=== PATIENT | male | born 1995 | race Caucasian/White ===

== ENCOUNTER 2016-08-26 14:17 | Inpatient (IN) | payer BC, OTHER ==
[~2016-08-26] VITALS: Ht 170.2 cm; Wt 73.9 kg
[2016-08-26] MEDS ORDERED: ONDANSETRON 4 MG/2 ML VIAL IM PRN (21:45)
[2016-08-26] MEDS ORDERED: MIRALAX 17 GM POWD.PACK PO PRN (21:45)
[2016-08-26] MEDS ORDERED: HYDROXYZINE PAMOATE 25 MG CAPSULE PO PRN (21:45)
[2016-08-26] MEDS ORDERED: MAGNESIUM HYDROXIDE 30 ML LIQUID UDC PO PRN (21:45)
[2016-08-26] MEDS ORDERED: diphenhydrAMINE 50 MG CAPSULE PO PRN (21:45)
[2016-08-26] MEDS ORDERED: BUPRENORPHINE HCL 2 MG TAB.SUBL SL PRN (21:45)
[2016-08-26] MEDS ORDERED: LOPERAMIDE HCL 2 MG CAPSULE PO PRN ×2 (21:45)
[2016-08-26] MEDS ORDERED: MAG HYDROX/AL HYDROX/SIMETH 30 ML LIQUID UDC PO PRN (21:45)
[2016-08-26] MEDS ORDERED: ACETAMINOPHEN 325 MG TABLET PO PRN (21:45)
[2016-08-26] MEDS ORDERED: ONDANSETRON ODT 4 MG TAB.RAPDIS SL PRN (21:45)
--- NOTE | 2016-08-26 22:00 | NUR ---
Intake Assessment Assessment done at intake office. Patient is alert & oriented x4. Pt is ambulatory with a steady gait. Speech is clear and audible. Pt appears slightly anxious and is cooperative during interviews. Vitals noted B/P 124/76, PA 87, RR 18, Temp 97.9, O2Sat 96%. Pt is here for Opiate. Pt has Hepatitis C. No seizure history noted. Pt denies any food and drug allergies. Pt did not bring any home medications. Explained to pt unit protocols. Pt verbalized understanding.
[2016-08-26 22:15] VITALS: BP 124/76
--- NOTE | 2016-08-26 22:15 | NUR ---
ADMISSION NOTE: Patient is a 21 y.o male admitted at [facility] at approximately 2215pm of 07/27/16 for medically supervised withdrawal from Opiate. Body search done and skin check performed in Room 327, no contraband found. Track miranda noted on both upper extremities. Pt is 57" tall and weighs 163 lbs in a standing scale. Pt is cooperative during assessment. Patient is oriented to floor unit and room. Patient follows a regular diet at home with no known food and drug allergies. Pt wishes to be full Code. Patient is alert & oriented x4, ambulatory with a steady gait. Speech is clear and audible. Patient is cooperative during interview. No shortness of breath noted. Respiration even & unlabored. Abdomen soft & non-distended. Bowel sounds active in all four quadrants. No nausea/vomiting noted. Patient complains of 7/10 body aches, hot and cold sweats, chills & runny nose. Slight bilateral hand tremors noted. CIWA 7 noted. Vitals upon admission: B/P 124/76, SD 87, Temp 97.9, RR 16, O2Sat 96%. Patient has Hepatitis C. No seizure history noted. Pt denies suicide in the past. No suicide attempts. Pt currently denies SI/HI. Pt was able to provide urine sample for drug screen upon admission and is voiding clear yellow urine with no problems. Substance use: 1. Heroin- Pt has been using heroin since he was 15 years old. Pt currently uses 1-2 grams of heroin daily since he relapsed 6 months ago. Last use was 1 gram of heroin on the day of admission 08/26/16. Treatment History: [facility] and Body in [facility] for 5 days ( March 2016) Patient denies being hospitalized in the last 30 days. Patient reports his longest period of sobriety was for 1 month 6 months ago Patient reports symptoms when he does not use as cold & hot sweats, chills, body aches, headache, nausea, skin crawling, shaking, restless, anxious & irritability. Patient smokes 20 cigarettes daily. Patient refused pneumonia vaccines, educated patient risk & benefits but still refused. Patient denies having a PCP. Urine drug screen came back positive for Opiates & Barbiturates. Fall precautions are in place. All needs attended & met. Safety precautions are in place. Bed locked in lowest position. Both side rails padded & up. Call light within pt's reach. notified of pts admission. Awaiting for admission order. Will continue to monitor patient.
[2016-08-26] MEDS: METHOCARBAMOL 750 MG TABLET PO PRN (23:12)
[2016-08-26] MEDS: CLONIDINE HCL 0.1 MG TABLET PO PRN (23:12)
--- NOTE | 2016-08-26 23:12 | NUR ---
PRN Administration Patient complains of hot and cold sweats, chills & 7/10 generalized body aches. PRN Clonidine & Robaxin administered as ordered. Will reassess in 1 hour for effectiveness of medication.
[2016-08-26 23:13] LABS: *AMPHETAMINE, URINE NEGATIVE (NEGATIVE); *BARBITURATE, URINE POSITIVE (NEGATIVE); *CANNABINOID, URINE NEGATIVE (NEGATIVE); *COCCAINE, URINE NEGATIVE (NEGATIVE); *OPIATE, URINE POSITIVE (NEGATIVE); *PHENCYCLIDINE SCREEN,URINE NEGATIVE (NEGATIVE)
[2016-08-26] MEDS ORDERED: METHOCARBAMOL 750 MG TABLET ONE (23:20)
[2016-08-26] MEDS ORDERED: ONDANSETRON ODT 4 MG TAB.RAPDIS ONE (23:20)
[2016-08-26] MEDS ORDERED: CLONIDINE HCL 0.1 MG TABLET ONE (23:20)
--- NOTE | 2016-08-27 00:12 | NUR ---
PRN Reassessment Pt verbalized relief from sweats and chills and discomfort. 3/10 generalized body aches noted at this time. Will continue to monitor patient.
[2016-08-27 04:00] VITALS: BP 107/64
--- NOTE | 2016-08-27 07:01 | NUR ---
End of Shift Note: Pt is a 21 y/o male admitted last night for Opiate dependence. Pt reported using Heroin IV 1-2 grams daily for 6 months. Patient has hepatitis C. No seizure history noted. Patient is on a regular diet with no known food and drug allergies. Full Code status. Patient with noted skin tracks on both upper extremities. Patient has no taper yet. Initial COWS is 7. Pt remained stable and vitals remains WNL. Pt was given PRN Robaxin & Clonidine last night and were effective. Pt slept for a total of 7 hours. Pt consumed 828ml of fluids. Voided 1x with no bowel movement. All needs attended & met. Safety precautions are in place. Bed locked in lowest position. Both side rails up. Call light within pts reach. Will endorse pt to day shift nurse.
--- NOTE | 2016-08-27 07:02 | NUR ---
Start of Shift Notes: Received patient in his room. Alert and oriented x 4. Verbally responsive. Able to make needs known. Respirations even and unlabored. No SOB noted. Skin warm and dry to touch. Abdomen soft and non-distended. Bowel sounds present in all 4 quadrants. No complains N/V/D or abdominal pain noted. No complains of diarrhea or constipation. Voids independently. Ambulatory ad samuel with steady gait. Voids independently No complains of dysuria. Patient is a 21 year old male admitted for opiate dependence who was placed on PRNs only at this time. Has past medical hx of Hep C. FULL CODE. Regular diet. NKA. Educated patient on his current plan of care and his medication regimen. Patient verbalized good understanding. Encouraged oral fluid intake and encouraged group participation to learn new skills to prevent relapse. Will continue to monitor closely.
[2016-08-27 08:00] VITALS: BP 114/67
[2016-08-27] MEDS: MULTIVITAMINS,THERAPEUTIC TABLET PO SCH (09:00)
[2016-08-27] MEDS ORDERED: TUBERCULIN,PURIF.PROT.DERIV. 5 TU/0.1 ML TEST ID ONE ×2 (09:00→13:00)
--- NOTE | 2016-08-27 09:49 | NUR ---
MVI and TB test not administered: Patient refused MVI and TB test at this time. Patient states "I just want to sleep, leave me alone." Patient education was provided on the risk and benefits patient still refused. Patient's COWS 7 but refused any meds at this time. Dr. Yao in the unit and made aware.
--- NOTE | 2016-08-27 10:00 | NUR ---
UDS result: UDS result shows (+) for barbiturates. Per patient, he does not recall using any barbiturates and denies using barbiturates.
[2016-08-27 11:23] LABS: BASOPHILS % (AUTO) 0.4 % (0.0-2.0); EOSINOPHILS # (AUTO) 0.1 K/uL (0.0-0.7); EOSINOPHILS % (AUTO) 1.9 % (0.0-7.0); HEMATOCRIT 43.8 % (40-50); HEMOGLOBIN 14.8 G/DL (14.0-18.0); LYMPHOCYTES # (AUTO) 1.3 K/UL (0.8-4.8); LYMPHOCYTES % (AUTO) 19.8 % (20.5-51.5); MEAN CORPUSCULAR HEMOGLOBIN 28.3 UUG (27.0-31.0); MEAN CORPUSCULAR HGB CONC 34 g/dL (32.0-37.0); MEAN CORPUSCULAR VOLUME 83.8 FL (82.0-92.0); MONOCYTES # (AUTO) 0.4 K/UL (0.1-1.30); MONOCYTES % (AUTO) 5.9 % (0.0-11.0); NEUTROPHILS # (AUTO) 4.7 K/UL (1.8-8.9); PLATELET COUNT (AUTO) 330 K/UL (150-450); RED BLOOD CELL COUNT(AUTO) 5.23 MIL/UL (4.7-6.1); RED CELL DISTRIBUTION WIDTH 13.1 % (11.5-14.5); WHITE BLOOD COUNT (AUTO) 6.5 K/UL (4.0-11.2)
[2016-08-27 11:28] LABS: ETHANOL < 3 MG/DL (0-0)
[2016-08-27 11:29] LABS: ALANINE AMINOTRANSFERASE 62 U/L (16-63); ALBUMIN 3.3 g/dL (3.4-5.0); ALKALINE PHOSPHATASE 50 U/L (50-136); ASPARTATE AMINOTRANSFERASE 47 U/L (15-37); BILIRUBIN,TOTAL 0.5 mg/dL (0.2-1.0); CARBON DIOXIDE 30 mmol/L (21-32); CHLORIDE 101 mmol/L (98-107); CREATININE 0.9 mg/dL (0.6-1.3); GFR 105 mL/min (>60); GLUCOSE 125 mg/dL (74-106); POTASSIUM 4.1 mmol/L (3.5-5.1); SODIUM SERUM 132 mmol/L (136-145); TOTAL PROTEIN, SERUM 7.4 g/dL (6.4-8.2); UREA NITROGEN, BLOOD 10 mg/dL (7-18)
[2016-08-27 11:38] LABS: THYROID STIMULATING HORMONE 0.268 mIU/mL (0.358-3.740)
[2016-08-27 12:00] VITALS: BP 117/71
[2016-08-27] MEDS: DICYCLOMINE HCL 20 MG TABLET PO PRN (12:20)
[2016-08-27] MEDS: CLONIDINE HCL 0.1 MG TABLET PO PRN (12:20)
[2016-08-27] MEDS: METHOCARBAMOL 750 MG TABLET PO PRN (12:20)
--- NOTE | 2016-08-27 12:21 | NUR ---
Clonidine 0.1mg/Robaxin 750mg/Bentyl 20 mg PO given: Patient noted with COWS 14, presented with chills, hot flashes, anxiety, pupil dilation, muscle aches and pains 6/10, and stomach cramps. Medicated patient with Clonidine 0.1mg PO, Robaxin 750 mg PO and Bentyl 20 mg PO as ordered. Will monitor for effectiveness.
[2016-08-27 12:25] LABS: HIV-1 p24 ANTIGEN NON REACTIVE (NONREACTIVE); HIV-1/2 ANTIBODY NON REACTIVE (NONREACTIVE)
--- NOTE | 2016-08-27 12:51 | NUR ---
Re-assessment: Per patient, Subutex 4 mg SL has been effective in reducing withdrawal symptoms. COWS 8
--- NOTE | 2016-08-27 13:21 | NUR ---
Re-assessment: Robaxin, Clonidine and Bentyl: Per patient, PRN Robaxin, Clonidine and Bentyl has been effective in reducing patient's muscle aches and pains, PL 3/10. Less anxiety, chills and hot flashes subsided and denies abdominal discomfort at this time.
[2016-08-27] MEDS ORDERED: BUPRENORPHINE HCL 2 MG TAB.SUBL SL SCH (15:00)
--- NOTE | 2016-08-27 15:51 | NUR ---
MD Communication: Patient appeared to put Subutex under his tongue, but turned his back against the nurse. Patient's left hand was seen with 2 white circular tablets in his possession. Nurse immediately intervened and notified patient that he needs to put the Subutex under his tongue to prevent complications. Patient denied having Subutex on his left hand but also refused to open his mouth for the nurse to check on the Subutex. Reinforcement was provided on the consequences involved. Patient eventually placed the Subutex under his tongue. Oral checked was done. No residue from Subutex was seen. Notified Dr. Yao and discontinued patient's taper. Will continue to monitor. Administration notified. VS checked BP 110/61, Pulse 90.
[2016-08-27 16:00] VITALS: BP 113/53
--- NOTE | 2016-08-27 16:25 | NUR ---
New Orders: Patient was placed on 1:[address] Yao for safety.
--- NOTE | 2016-08-27 19:00 | NUR ---
End of Shift Notes: Patient is a 21 year old male admitted for opiate dependence that was placed on 3-day Subutex taper but was discontinued per MD Yao. Prior to admission, patient was using 1-2 grams of heroin IV daily x 6 months. VS monitored closely q 4 hours. No significant abnormalities noted. Withdrawal symptoms were closely monitored. Initial COWS 14. Presented with abdominal spasms, chills, hot flashes, sweating, and muscle aches and pains. Refused 0900 meds but eventually agreed. PRN Robaxin 750mg, Clonidine 0.1mg, Bentyl 20 mg was administered at 1221 with help after 1 hour. Last COWS 8. Patient on 1:1 at this time for safety. Education and reassurance provided. Dr. Yao aware. On fall and seizure precautions. Did not participate in group. All needs met and attended. Will continue to monitor closely.
[2016-08-27 20:00] VITALS: BP 116/72
--- NOTE | 2016-08-27 20:39 | NUR ---
START OF SHIFT NOTE Pt is a 21 y/o male admitted for Heroin dependence. Pt has NKA , but reported a PMH of Hep C. Per day shift nurse pt is not on a taper at this time but has PRNS available for any discomfort/distress. Pt received Clonidine 0.1 mg PO PRN, Robaxin 750 mg PO PRN, Bentyl 20 mg PO PRN, and Subutex 4 mg PO x 1 during the day shift. Last COW: 8 (1600). At this time pt is in his room watching television. Pt denies any pain/discomfort at this time. All safety measures in place; side rails up x 2, bed locked and in low position and call light is within reach. Will continue to monitor.
[2016-08-28] VITALS: BP 98/49
[2016-08-28 04:00] VITALS: BP 105/69
--- NOTE | 2016-08-28 07:15 | NUR ---
END OF SHIFT NOTE Pt is a 21 y/o male admitted for Heroin dependence. Pt has NKA , but reported a PMH of Hep C. Pt is not on a taper at this time but has PRNS available for any discomfort/distress. Pt didn't receive any PRNS during the shift. Last COW: 0 (0400). Pt slept for a total of 11 hours. All safety measures in place; side rails up x 2, bed locked and in low position and call light is within reach. Endorsed to the oncoming nurse.
--- NOTE | 2016-08-28 07:50 | NUR ---
START OF SHIFT NOTE Receive report from night nurse, 21 year old male admitted for Opiate dependence. Pt reported using Heroin IV 1-2 grams daily for 6 months. Pt has hepatitis C. No seizure history noted. Regular diet with no known food and drug allergies. Full Code status. Pt has tracks on both upper extremities. Pt not on any taper but PRN's available for s/s of withdrawal. Per endorsement pt did not receive any PRN medications, slept for a total of 11 hours, Last COWS-0. Currently pt is resting in his room in stable condition. Breathing normal no SOB noted. responsive to verbal and tactile stimuli. Safety precautions are in place. Bed locked in lowest position, Call light within pt's reach. Will continue to monitor.
[2016-08-28 08:00] VITALS: BP 119/65
[2016-08-28] MEDS: MULTIVITAMINS,THERAPEUTIC TABLET PO SCH (08:44)
[2016-08-28] MEDS ORDERED: BUPRENORPHINE HCL 2 MG TAB.SUBL SL SCH (09:00)
--- NOTE | 2016-08-28 09:00 | NUR ---
REFUSED MEDS/COWS DEFERRED Pt refused his scheduled morning medication, offered x3 risk and benefits explained. Pt states "I don't need anything, I am feeling tired and i don't want to answer any questions I just want to sleep." COWS deferred. aware. Will cont to monitor.
[2016-08-28 12:00] VITALS: BP 112/57
[2016-08-28] MEDS: IBUPROFEN 600 MG TABLET PO PRN (13:02)
[2016-08-28] MEDS: METHOCARBAMOL 750 MG TABLET PO PRN (13:02)
[2016-08-28] MEDS: DICYCLOMINE HCL 20 MG TABLET PO PRN (13:02)
--- NOTE | 2016-08-28 13:02 | NUR ---
PRN MEDICATIONS Pt noted with COWS 12, presented with chills, hot flashes, anxiety, muscle aches and pains 6/10, and stomach cramps. Administered Robaxin 750 mg PO /Bentyl 20 mg PO/ Vistaril 50mg Po/ Motrin 600mg Po as ordered. Will monitor to monitor.
--- NOTE | 2016-08-28 13:49 | NUR ---
TAPER STARTED Pt started on 3 days Subutex taper, COWS-12.
[2016-08-28] MEDS: BUPRENORPHINE HCL 2 MG TAB.SUBL SL SCH ×3 (13:51→20:55)
--- NOTE | 2016-08-28 14:02 | NUR ---
REASSESSMENT Upon reassessment Pt reported medications effective.
[2016-08-28 14:06] LABS: HCV AB >11.0 s/co ratio (0.0-0.9); HEPATITIS B CORE AB, IgM Negative (Negative); HEPATITIS B SURFACE AG Negative (Negative)
[2016-08-28 16:00] VITALS: BP 97/64
--- NOTE | 2016-08-28 18:51 | NUR ---
END OF SHIFT NOTE Gave report to night nurse, 50 year old male admitted to [facility] on 08/28/16 at 1623. Pt is under the care of Dr. Yao for ETOH dependence. Pt reported PMH of bipolar, anxiety, hypothyroidism, PTSD, GERD, Seizure in 2007. Pt reported drinking ETOH(VODKA)- 750ml daily since 08/07/16, last used was on 08/27/16 750ml Po. Pt has been using at this rate for last 3 weeks. Pt repots was sober for 8 years from 2008- July 2016. Vital signs stable. Skin intact warm and dry to touch. Pt reported that he fall yesterday but did not hurt him self. Pt started on 5 days Ativan taper tolerated well. pt also received thiamin IM injection site clean and dry no s/s of bleeding noted. Last CIWA-8. All safety measures in place per hospital policy, Bed in low and locked position. Side rails up x2 and padded. Call light within reach. Pt endorsed to night nurse in stable condition. Addendum: 08/28/16 at 1853 by MARIZA SOLIZ LVN WRONG PT ERROR IN CHARTING
--- NOTE | 2016-08-28 19:10 | NUR ---
END OF SHIFT NOTE Gave report to night nurse, 21 year old male admitted for Opiate dependence. Pt reported using Heroin IV 1-2 grams daily for 6 months. Pt has hepatitis C. No seizure history noted. Regular diet with no known food and drug allergies. Full Code status. Pt has tracks on both upper extremities. Pt was using 1-2 grams of heroin IV daily x 6 months. Pt started on 3 days Subutex taper COWS score was 12 tolerated well. Pt received PRN medications noted effective. Vital signs remained stable. Last COWS-5. Safety measures in place, call light within reach. Pt endorsed to night nurse in stable condition.
--- NOTE | 2016-08-28 19:12 | NUR ---
Start of shift note Received report from day shift nurse. Pt is a 21 yo male, A+Ox4, presenting to [facility] for Opiate dependence. Pt has NKA, is Full Code status, and on Regular diet. Pt has HX of Hepatitis C+. Pt is on 3 day Subutex taper, tolerated well. No s/s of distress noted at this time. Respirations even and unlabored. Will continue to monitor.
[2016-08-28 20:40] VITALS: BP 117/61
[2016-08-29 00:48] VITALS: BP 111/56
[2016-08-29 04:31] VITALS: BP 102/58
--- NOTE | 2016-08-29 07:00 | NUR ---
End of shift note Pt is a 21 yo male, A+Ox4, presenting to [facility] for Opiate dependence. Pt has NKA, is Full Code status, and on Regular diet. Pt has HX of Hepatitis C+. Pt is on 3 day Subutex taper, tolerated well. Pt slept for a total of 8 HRS. Last COWS: 2 @0400. No s/s of distress noted at this time. Respirations even and unlabored. Will endorse to day shift nurse.
--- NOTE | 2016-08-29 07:29 | NUR ---
BEGINNING OF SHIFT Patient endorsement report received from night clerk auditor nurse, all pertinent information discussed. patient with admitting Dx: opiate dependence Patient admitted on the: 08/26/2016. PMH: Hepatitis c +. Patient placed on a 3 day Subutex taper as ordered, and is currently to begin day 2 of taper. As per night clerk auditor patient slept for 8 hours, received no PRNs during night clerk auditor. Patient with last cow score of: 2. Patient received awake, alert and oriented x4, educated patient regarding plan of care for the day and medication regimen with good verbal understanding. safety measures in place. will continue to monitor.
[2016-08-29 08:09] VITALS: BP 128/79
[2016-08-29] MEDS: MULTIVITAMINS,THERAPEUTIC TABLET PO SCH (08:19)
[2016-08-29] MEDS: IBUPROFEN 600 MG TABLET PO PRN ×2 (08:19→21:10)
[2016-08-29 08:31] LABS: BILIRUBIN,DIRECT 0.1 mg/dL (0.0-0.2); BILIRUBIN,TOTAL 0.2 mg/dL (0.2-1.0); CALCIUM 8.6 mg/dL (8.5-10.1); MAGNESIUM 1.8 mg/dL (1.8-2.4); POTASSIUM 4.4 mmol/L (3.5-5.1); TOTAL PROTEIN, SERUM 6.9 g/dL (6.4-8.2)
[2016-08-29 08:57] LABS: THYROID STIMULATING HORMONE 1.011 mIU/mL (0.358-3.740)
[2016-08-29] MEDS ORDERED: BUPRENORPHINE HCL 2 MG TAB.SUBL SL SCH ×2 (09:00)
[2016-08-29] MEDS: CLONIDINE HCL 0.1 MG TABLET PO PRN (10:09)
--- NOTE | 2016-08-29 10:39 | NUR ---
PRN CLONIDINE/ZOFRAN/IMODIUM Patient c/o increase chills, noted diaphoretic, c/o nausea and had two episodes of vomiting, and reported two episodes of diarrhea. Patient was administered clonidine 0.1mg Po, Zofran 4mg IM, and Imodium 4mg Po as ordered. blood pressure prior to administration of clonidine: 131/84 heart rate: 75. Zofran injection well tolerated. Safety measures in place. call light kept with in reach, will continue to monitor closely.
--- NOTE | 2016-08-29 11:39 | NUR ---
CLONIDINE/ZOFRAN/IMODIUM REASSESSMENT Patient reports medications with relief, no episodes of diarrhea/vomiting or c/o nausea, patient reports feeling less diaphoretic and no c/o chills, patient encouraged adequate PO fluid intake as tolerated, will continue to monitor closely.
[2016-08-29 13:56] VITALS: BP 121/64
[2016-08-29] MEDS: BACLOFEN 10 MG TABLET PO SCH ×2 (14:59→21:00)
[2016-08-29] MEDS: DICYCLOMINE HCL 20 MG TABLET PO SCH ×2 (15:00→21:00)
[2016-08-29] MEDS: GABAPENTIN 400 MG CAPSULE PO SCH ×2 (15:00→20:59)
[2016-08-29] MEDS: BUPRENORPHINE HCL 2 MG TAB.SUBL SL SCH ×2 (15:00→20:59)
[2016-08-29] MEDS: CLONIDINE HCL 0.1 MG TABLET PO SCH ×2 (15:00→21:00)
[2016-08-29 17:21] VITALS: BP 127/66
--- NOTE | 2016-08-29 18:52 | NUR ---
END OF SHIFT Patient alert and oriented x4, vital signs were stable during shift. patient was compliant with therapeutic plan of care. Patient with admitting Dx: opiate dependence and is currently on day 2 of 3 day Subutex taper as ordered. Medication well tolerated, no ASE noted. Patient under close supervision for episode of Diverting medication. patient was placed with 1:1 sitter one hour post medication administration, no episodes of diverting medication were noted. 0900 assessment patient presented with: c/o chills, mild bone and joint aches, moist eyes, runny nose, stomach cramps, tremors that can be felt but not seen, mild anxiety with cow score of: 7. 1300 assessment patient presented with: c/o chills, mild bone and joint aches, moist eyes, runny nose, stomach cramps, tremors that can be felt but not seen and mild anxiety with cow score of: 7. 1700 assessment patient presented with: mild anxiety, c/o chills, mild bone and joint aches, moist eyes, and tremors that can be felt but not seen and cow score of: 6. Detox medication effective at reducing s/sx of withdrawal. Patient received PRN: clonidine, Zofran and Imodium during shift all medications administered were effective one hour post administration. Patient encouraged adequate PO fluid intake as tolerated. Encouraged to attend group therapies/sessions to learn new coping skills to prevent relapse, noted attending and participating, denies any SI/HI. Safety measures in place. call light kept with in reach. all needs met and rendered. patient endorsed to catalog specialist nurse, all pertinent information discussed.
[2016-08-29 20:00] VITALS: BP 133/87
--- NOTE | 2016-08-29 20:00 | NUR ---
Start of Shift Pt is a 21 year old male admitted for Opiate dependence, placed on 3 day Subutex taper. Pt reported using Heroin IV 1-2g/daily x6 months. PMH: Hepatitis C. NKA, regular diet, fall precautions and full code. Upon assessment, pt reports feeling anxious, reports body aches, muscle aches, pt is noted to be fidgeting - unable to sit still, skin clammy/sweaty, runny nose/teary eyes noted, respirations even/unlabored, denies SOB/chest pain, reports mild nausea. Safety measures in place, call light within reach, side rails up x2, bed locked and in low position. Will continue to monitor.
--- NOTE | 2016-08-29 21:10 | NUR ---
PRN Administration Pt reports pain in right arm as reported by pt, rated 6/10. Motrin 600mg PRN administered. Safety measures in place. Will continue to monitor.
--- NOTE | 2016-08-29 22:10 | NUR ---
PRN Reassessment Pt states right arm pain is subsiding, rated 3/10. Safety measures in place. Will continue to monitor.
[2016-08-29] MEDS: METHOCARBAMOL 750 MG TABLET PO PRN (22:21)
--- NOTE | 2016-08-29 22:21 | NUR ---
PRN Administration Pt reported body aches/muscle throughout body, requested relief. Robaxin 750mg PRN administered. Safety measures in place. Will continue to monitor.
--- NOTE | 2016-08-29 23:21 | NUR ---
PRN Reassessment Pt reports mild body/muscle aches, pt is resting in bed, watching television. Needs met, safety measures in place, will continue to monitor.
[2016-08-30] VITALS: BP 123/78
--- NOTE | 2016-08-30 | NUR ---
Vital Signs BP 123/78, pulse 78, resp 16, temp 97.9, Spo2 98%, no pain 0/10 COWS deferred d/t pt sleeping, to assess while awake as ordered. Safety measures in place, will continue to monitor
[2016-08-30 04:00] VITALS: BP 102/69
--- NOTE | 2016-08-30 04:00 | NUR ---
Vital Signs BP 102/69, pulse 73, resp 16, temp 98.3, Spo2 99%, no pain 0/10 COWS deferred d/t pt sleeping, to assess while awake as ordered. Safety measures in place, will continue to monitor
--- NOTE | 2016-08-30 07:00 | NUR ---
End of Shift Pt is a 21 year old male admitted for Opiate dependence, placed on 3 day Subutex taper. Pt reported using Heroin IV 1-2g/daily x6 months. PMH: Hepatitis C. NKA, regular diet, fall precautions and full code. During shift, pt reported feeling anxious, reported body aches, muscle aches, pt is noted to be fidgeting - unable to sit still, skin clammy/sweaty, runny nose/teary eyes noted - scheduled taper medications administered, COWS 5. PRN Motrin 600mg administered for right arm pain and Robaxin 750mg PRN administered for body/muscle aches. Pt slept for 6 hours, intake of 888 ml Po and voids x1. Safety measures in place, call light within reach, side rails up x2, bed locked and in low position. Endorsed to day shift nurse.
--- NOTE | 2016-08-30 07:35 | NUR ---
START OF SHIFT Rcvd endorsement from night nurse, client is in room, he presents with depressed, mood, flat affect. He stated "I had a horrible night, my whole body was in pain." He denies any N/V/D. Client admitted for Opioid withdrawal. He is on placed on 3 day Subutex taper. Pt reported using Heroin IV 1-2g/daily x6 months. PMH: Hepatitis C. NKA, regular diet, fall precautions and full code. During shift, pt reported feeling anxious, reported body aches, muscle aches, pt is noted to be fidgeting - unable to sit still, skin clammy/sweaty, runny nose/teary eyes noted - scheduled taper medications administered, COWS 5. PRN Motrin 600mg administered for right arm pain and Robaxin 750mg PRN administered for body/muscle aches. Pt slept for 6 hours, intake of 888 ml Po and voids x1. Safety measures in place, call light within reach, side rails up x2, bed locked and in low position. Endorsed to day shift nurse.
[2016-08-30 08:00] VITALS: BP 102/50
[2016-08-30] MEDS: BACLOFEN 10 MG TABLET PO SCH (09:45)
[2016-08-30] MEDS: DICYCLOMINE HCL 20 MG TABLET PO SCH ×3 (09:45→22:08)
[2016-08-30] MEDS: BUPRENORPHINE HCL 2 MG TAB.SUBL SL SCH ×3 (09:46→22:09)
[2016-08-30] MEDS: MULTIVITAMINS,THERAPEUTIC TABLET PO SCH (09:46)
[2016-08-30] MEDS: GABAPENTIN 400 MG CAPSULE PO SCH (09:46)
[2016-08-30] MEDS: CLONIDINE HCL 0.1 MG TABLET PO SCH ×3 (09:46→22:09)
[2016-08-30 12:40] VITALS: BP 112/60
[2016-08-30] MEDS ORDERED: BACLOFEN 10 MG TABLET PO SCH (15:00)
[2016-08-30] MEDS: BACLOFEN 20 MG TABLET PO SCH ×2 (15:33→22:08)
[2016-08-30] MEDS: GABAPENTIN 300 MG CAPSULE PO SCH ×2 (15:33→22:08)
[2016-08-30 16:55] VITALS: BP 126/84
[2016-08-30] MEDS: BOOST PLUS 237 ML LIQUID (RICH CHOCOLATE) PO SCH (17:59)
--- NOTE | 2016-08-30 19:15 | NUR ---
START OF SHIFT Received 21 year old male patient admitted on 08/26/16 for Heroin dependency. Pt is full code with NKA. He reports a PMHx of Hep C. Pt reports using Heroin IV 1-2 grams daily for 6 months. Last dose was 1 gram on 08/26/16. Pt's currently on 3 day Subutex taper started on 08/28/16 and tolerating well. Pt is alert and oriented x4. Breathing is even and unlabored. Pt is safe with bed locked in lowest position, side rails up x2 and call light within reach. Will continue to monitor.
--- NOTE | 2016-08-30 19:42 | NUR ---
End of Shift Client is a 21 year old male admitted for Opiate dependence, placed on 3 day Subutex taper. Pt reported using Heroin IV 1-2g/daily x6 months. PMH: Hepatitis C. NKA, regular diet, fall precautions and full code. During shift, pt reported feeling anxious, reported body aches, muscle aches, scheduled taper medications administered, COWS 5. Adequate intake and output. He was compliant with treatment care plan. Safety measures in place, call light within reach, side rails up x2, bed locked and in low position. Endorsed to incoming nurse.
[2016-08-30 20:00] VITALS: BP 119/69
--- NOTE | 2016-08-31 | NUR ---
VITALS REFUSED/ COWS DEFERRED 0000 vitals refused by pt. Risks/benefits explained x3. Pt still refused. COWS deferred d/t pt lying in bed with eyes closed noted to be asleep. No facial grimacing noted. Respirations 16, breathing is even and unlabored. Safety measures in place. Will monitor.
--- NOTE | 2016-08-31 04:00 | NUR ---
VITALS REFUSED/ COWS DEFERRED 0400 vitals refused by pt. Risks/benefits explained x3. Pt still refused. COWS deferred d/t pt lying in bed with eyes closed noted to be asleep. No facial grimacing noted. Respirations 16, breathing is even and unlabored. Safety measures in place. Will continue to monitor.
--- NOTE | 2016-08-31 07:20 | NUR ---
END OF SHIFT Pt is a 21 year old male patient admitted on 08/26/16 for Heroin dependency. Pt is full code with NKA. He reports a PMHx of Hep C. Pt's currently on 3 day Subutex taper started on 08/28/16 and tolerating well. He did not receive or request PRN medications. He slept a total of 5 hrs, Intake: 900mL, Void: x3, BM: x1, COWS: 5. At 0000 and 0400 pt refused vital signs. Risks and benefits explained x3, pt still refused. Pt remains alert and oriented x4. Breathing is even and unlabored. Pt is safe with bed locked in lowest position, side rails up x2 and call light within reach. Endorsed to oncoming shift.
--- NOTE | 2016-08-31 07:40 | NUR ---
BEGINNING OF SHIFT Patient endorsement report received from manager study nurse, all pertinent information discussed. patient with admitting Dx: opiate dependence Patient admitted on the: 08/26/2016. PMH: Hepatitis c +. Patient placed on a 3 day Subutex taper as ordered, and is currently to begin day 3 of taper. As per manager study patient slept for 5 hours, received no PRNs during manager study. Patient with last cow score of: 5. Patient received awake, alert and oriented x4, educated patient regarding plan of care for the day and medication regimen with good verbal understanding. safety measures in place. will continue to monitor.
[2016-08-31 08:18] VITALS: BP 112/68
[2016-08-31] MEDS: MULTIVITAMINS,THERAPEUTIC TABLET PO SCH (08:19)
[2016-08-31] MEDS: CLONIDINE HCL 0.1 MG TABLET PO SCH ×3 (08:19→23:08)
[2016-08-31] MEDS: BACLOFEN 20 MG TABLET PO SCH ×3 (08:19→23:07)
[2016-08-31] MEDS: DICYCLOMINE HCL 20 MG TABLET PO SCH ×3 (08:19→23:08)
[2016-08-31] MEDS: GABAPENTIN 300 MG CAPSULE PO SCH ×3 (08:19→23:07)
[2016-08-31] MEDS: BOOST PLUS 237 ML LIQUID (RICH CHOCOLATE) PO SCH ×2 (08:22→16:53)
[2016-08-31] MEDS ORDERED: BUPRENORPHINE HCL 2 MG TAB.SUBL SL SCH (09:00)
[2016-08-31 13:00] VITALS: BP 98/62
[2016-08-31 17:08] VITALS: BP 118/67
[2016-08-31] MEDS ORDERED: Baclofen PO (18:30)
[2016-08-31] MEDS ORDERED: HYDR-3895 PO (18:30)
[2016-08-31] MEDS ORDERED: DIPH50CA37 PO (18:30)
[2016-08-31] MEDS ORDERED: Ibuprofen PO (18:30)
[2016-08-31] MEDS ORDERED: Gabapentin PO (18:30)
[2016-08-31] MEDS ORDERED: DICY20TA28 PO (18:30)
[2016-08-31] MEDS ORDERED: CLON0.1T14 PO (18:30)
--- NOTE | 2016-08-31 19:01 | NUR ---
END OF SHIFT Patient alert and oriented x4, vital signs were stable during shift. patient was compliant with therapeutic plan of care. Patient with admitting Dx: opiate dependence and is currently on day 3 of 3 day Subutex taper as ordered. Medication well tolerated, no ASE noted. 0900 assessment patient presented with: c/o chills, stomach cramps, mild anxiety and goosebump with cow score of: 6 1300 assessment patient presented with: c/o chills, stomach cramps, mild anxiety with cow score of; 3. 1700 assessment patient presented with: mild anxiety with cow score of: 1 Detox medication effective at reducing s/sx of withdrawal. Patient received no PRNs during shift. Patient encouraged adequate PO fluid intake as tolerated. Encouraged to attend group therapies/sessions to learn new coping skills to prevent relapse, noted attending and participating, denies any SI/HI. Patient is scheduled for discharge tomorrow, urine drug screen completed. Patient noted self motivated towards sobriety. Safety measures in place. call light kept with in reach. all needs met and rendered. patient endorsed to cage shift manager nurse, all pertinent information discussed.
--- NOTE | 2016-08-31 19:15 | NUR ---
START OF SHIFT Received 21 year old male patient admitted on 08/26/16 for Heroin dependency. Pt is full code with NKA. He reports a PMHx of hepatitis C. He reports using Heroin IV 1-2 gram daily for 6 months. Last dose was 1 gram on 08/26/16. He was placed on a 3 day Subutex taper and tolerated well. Pt is scheduled to be DC tomorrow 09/01/16. Per endorsement, he did not receive or request PRN medications. Pt is alert and oriented x4, breathing is even and unlabored. Pt safe with bed locked in lowest position, side rails up x2 and call light within reach. Will continue to monitor.
[2016-08-31 20:00] VITALS: BP 106/66
--- NOTE | 2016-09-01 | NUR ---
COWS DEFERRED. COWS deferred. Pt lying in bed with eyes closed noted to be asleep. Respirations 16, breathing even and unlabored. Safety measures in place. Will continue to monitor.
--- NOTE | 2016-09-01 | NUR ---
VITALS REFUSED 0000 vitals were refused by pt. Pt stated "Do not wake me up for vitals" Respirations 16, breathing even and unlabored. Safety measures in place. Will monitor.
--- NOTE | 2016-09-01 04:00 | NUR ---
VITALS REFUSED/ COWS DEFERRED. 0400 vitals were refused by pt. Pt stated "Do not wake me up for vitals" COWS deferred. Pt lying in bed with eyes closed noted to be asleep. Respirations 16, breathing even and unlabored. Safety measures in place. Will continue to monitor.
--- NOTE | 2016-09-01 07:19 | NUR ---
END OF SHIFT 0000 vitals were refused by pt. Pt stated "Do not wake me up for vitals" Respirations 16, breathing even and unlabored. Safety measures in place. Will monitor. Addendum: 09/01/16 at 0722 by CAMRYN ANDINO RN ERROR IN CHARTING.
--- NOTE | 2016-09-01 07:22 | NUR ---
END OF SHIFT Pt is a 21 year old male patient admitted on 08/26/16 for Heroin dependency. Pt is full code with NKA. He reports a PMHx of hepatitis C. Pt is scheduled to be DC today 09/01/16. He did not receive or request PRN medications. He slept a total of 5 hrs, Intake: 473 mL, Void: x2, BM: 0. COWS:3. Pt remains alert and oriented x4, breathing is even and unlabored. Pt safe with bed locked in lowest position, side rails up x2 and call light within reach. Endorsed to oncoming shift.
--- NOTE | 2016-09-01 07:32 | NUR ---
START OF SHIFT Received report from overnight caregiver nurse. 21 year old male admitted on 08/26/16 for heroin dependence. Pt was started on a 3 day Subutex taper and tolerated well. Pt reports hx of hepatitis C. NKA reported, NKA and full code. Skin remains intact, pt has track miranda BLE. No PRNs were needed or administered at night. V/SPt remains stable, and most recent COWS are 3. Pt slept for 5 hours. Ambulates with steady gait. Urine was collected for d/c. All needs met at this time. Safety precautions are in place, will continue to monitor.
[2016-09-01] MEDS: BOOST PLUS 237 ML LIQUID (RICH CHOCOLATE) PO SCH (08:00)
[2016-09-01 08:05] VITALS: BP 112/68
[2016-09-01 08:18] LABS: *AMPHETAMINE, URINE NEGATIVE (NEGATIVE); *BARBITURATE, URINE NEGATIVE (NEGATIVE); *CANNABINOID, URINE NEGATIVE (NEGATIVE); *COCCAINE, URINE NEGATIVE (NEGATIVE); *OPIATE, URINE NEGATIVE (NEGATIVE); *PHENCYCLIDINE SCREEN,URINE NEGATIVE (NEGATIVE)
[2016-09-01] MEDS: DICYCLOMINE HCL 20 MG TABLET PO SCH (09:00)
[2016-09-01] MEDS: MULTIVITAMINS,THERAPEUTIC TABLET PO SCH (09:00)
[2016-09-01] MEDS: BACLOFEN 20 MG TABLET PO SCH (09:00)
[2016-09-01] MEDS: CLONIDINE HCL 0.1 MG TABLET PO SCH (09:00)
[2016-09-01] MEDS: GABAPENTIN 300 MG CAPSULE PO SCH (09:04)
--- NOTE | 2016-09-01 09:55 | NUR ---
D/C NOTES Pt is A/O x4. V/S remain WNL. Pt denies SI/HI or hallucinations. Pt shows no s/s of acute withdrawal at this time, and is stable. COWS are 2. has medically cleared pt for d/c . Education on Hepatitis C, smoking cessation and medication side effects provided. Pt verbalizes understanding. All pt belongings are in belonging bag, including prescriptions, pt did not have any home medications. Refuses PNU vaccination. Pt is being accompanied by SENIOR CYBER INTELLIGENCE ANALYST at this time to be transported to rehab. All needs met.
== END 2016-09-01 09:55 | disposition home or self-care (01) | DRG 895 ==
LOC: SRC 21:27
PROVIDERS: ADMIT Internal Medicine; ATTEND Internal Medicine
PROC: HZ2ZZZZ Detoxification Services for Substance Abuse Treatment (ICD-10-PCS; principal; 2016-08-26)
PROC: HZ31ZZZ Individual Counseling for Substance Abuse Treatment, Behavioral (ICD-10-PCS; 2016-08-27)
PROC: HZ41ZZZ Group Counseling for Substance Abuse Treatment, Behavioral (ICD-10-PCS; 2016-08-30)
DX: F11.23 Opioid dependence with withdrawal (principal); E87.1 Hypo-osmolality and hyponatremia; E86.0 Dehydration; E07.81 Sick-euthyroid syndrome; F17.210 Nicotine dependence, cigarettes, uncomplicated; B19.20 Unspecified viral hepatitis C without hepatic coma; Z59.0 Homelessness; R73.9 Hyperglycemia, unspecified; R79.89 Other specified abnormal findings of blood chemistry
CPT/HCPCS: 36415; 70030-TC; 80307; 80345; 80361; 83735; 84443; 85025; 86580; 86592; 86705; 86803; 87340; 87806; A4663; G6040-TC; J2405; Q0162

== ENCOUNTER 2017-06-12 15:51 | Inpatient (IN) | payer OTHER ==
[~2017-06-12] VITALS: Ht 172.7 cm; Wt 68.0 kg
[~2017-06-12 15:51] MED LIST: Baclofen PO; CLON0.1T14 PO; DICY20TA28 PO; DIPH50CA37 PO; Gabapentin PO; HYDR-3895 PO; Ibuprofen PO
[2017-06-12] MEDS ORDERED: MAGNESIUM HYDROXIDE 30 ML LIQUID UDC PO PRN (21:30)
[2017-06-12] MEDS ORDERED: ONDANSETRON 4 MG/2 ML VIAL IM PRN (21:30)
[2017-06-12] MEDS ORDERED: NICOTINE POLACRILEX 4 MG GUM-PK OF TEN BC PRN (21:30)
[2017-06-12] MEDS ORDERED: LORAZEPAM 1 MG TABLET PO PRN (21:30)
[2017-06-12] MEDS ORDERED: DICYCLOMINE HCL 20 MG TABLET PO PRN (21:30)
[2017-06-12] MEDS ORDERED: MAG HYDROX/AL HYDROX/SIMETH 30 ML LIQUID UDC PO PRN (21:30)
[2017-06-12] MEDS ORDERED: BUPRENORPHINE HCL 2 MG TAB.SUBL SL PRN (21:30)
[2017-06-12] MEDS ORDERED: CLONIDINE HCL 0.1 MG TABLET PO PRN (21:30)
[2017-06-12] MEDS ORDERED: METHOCARBAMOL 750 MG TABLET PO PRN (21:30)
[2017-06-12] MEDS ORDERED: MIRALAX 17 GM POWD.PACK PO PRN (21:30)
[2017-06-12] MEDS ORDERED: IBUPROFEN 600 MG TABLET PO PRN (21:30)
[2017-06-12] MEDS ORDERED: HYDROXYZINE PAMOATE 25 MG CAPSULE PO PRN (21:30)
[2017-06-12] MEDS ORDERED: ACETAMINOPHEN 325 MG TABLET PO PRN (21:30)
[2017-06-12] MEDS ORDERED: LOPERAMIDE HCL 2 MG CAPSULE PO PRN ×2 (21:30)
[2017-06-12] MEDS ORDERED: NICOTINE 14 MG/24HR PATCH TD PRN (21:30)
--- NOTE | 2017-06-12 21:40 | NUR ---
PRE-ADMISSION NOTE Patient seen at intake, 22-year-old male, reports that he uses heroin IV and meth (intranasal) daily, consistently for the past 2 weeks, relapsed about 4 weeks ago. Patient reports feeling "very anxious" and complains of tenderness and sensitivity of his upper extremities. Several abscesses are visible, scattered along both arms. Patient's vitals are as follows: BP 137/73, HR 102, RR 20/min, O2 96%, temp 98.0, pain 7/10 bilateral upper extremities. Patient provided urine at intake, urine sent to lab for UA. Patient was instructed re: unit policies and procedures, skin/body check, contraband, and home meds. Patient verbalized understanding of instructions. Will complete admission once patient arrives on the unit.
[2017-06-12 22:03] LABS: *AMPHETAMINE, URINE POSITIVE (NEGATIVE); *BARBITURATE, URINE NEGATIVE (NEGATIVE); *CANNABINOID, URINE NEGATIVE (NEGATIVE); *COCCAINE, URINE NEGATIVE (NEGATIVE); *OPIATE, URINE POSITIVE (NEGATIVE); *PHENCYCLIDINE SCREEN,URINE NEGATIVE (NEGATIVE)
[2017-06-12] MEDS ORDERED: LORAZEPAM 1 MG TABLET PO SCH (22:30)
--- NOTE | 2017-06-12 23:15 | NUR ---
PRN MOTRIN Patient reports pain and aches, 7/10 on pain scale. PRN Motrin given PO. Safety measures in place, bed in lowest position, side rails up x2, call light within reach. Will reassess for effectiveness.
--- NOTE | 2017-06-12 23:30 | NUR ---
ADMISSION NOTE Patient is a 22-year-old male admitted on 06/12/17 for heroin withdrawal, concurrent meth use, on the unit at 2155. Patient is FULL code status, on a regular diet, with NKA per patient. Patient is alert and oriented x4, ambulatory with a steady gait. Pt has a past medical history of PTSD and Hep C. Patient denies seizure history or any recent falls. Patient's vitals are as follows: BP 137/73, HR 102, RR 20/min, O2 96%, temp 98.0, pain 7/10 bilateral upper extremities. Initial COWS of 11. Pt denies hospitalization or incarceration in past 30 days. Patient does not have a PCP. Patient smokes approximately 2 packs of cigarettes daily, verbalizes he would like to quit at some point. Patient declines flu and pneumonia vaccine, verbalizing that he does not need them. SN instructed patient on risks and benefits of vaccines. Pt verbalized understanding. Substance abuse history: 1. Heroin IV 1.5 grams daily for the past 2 weeks. Patient started at 0.2 gram 4 weeks ago when he initially relapsed and gradually worked up to 1.5 grams daily. Last use was 06/12/17, about 0.5 gram IV. 2. Methamphetamine ("snort" intranasal) daily for the past 2 weeks. Patient reports he does not recall specific amount, stating "a little bit" each day. Last intake was 06/12/17 about "a line" of meth. Patient was last in detox August of 2016, at [facility]. Patient then to [facility] for 90-day treatment. Patient maintained a 5 month sobriety from then until last month when he relapsed. Upon assessment, patient has several scabs scattered over his body, specifically on his right hand and left calf. Patient has several abscesses located on his upper and lower extremities. Photos taken, documented in pt chart. Patient's respirations are even and unlabored, lung sounds clear bilaterally. Patient is not certain when his last bowel movement was, perhaps 2-3 days ago. Patient reports SI and HI at this time, but please refer to separate Behavior Note regarding HI. Handouts and instructions left at bedside. Safety measures in place, bed locked in lowest position, side rails up x2, call light within reach. Will continue to monitor.
--- NOTE | 2017-06-12 23:35 | NUR ---
BEHAVIOR NOTE SN noted odd behavior in patient since his arrival on the unit, mainly manipulative behavior and inappropriate comments. At first patient requested that a female proceed with the body check for contraband. Patient also requested that only his nurse escort him down to smoke. SN instructed patient and reminded him of unit protocol. During admission process in patient's room, patient disclosed that he had HI "everyday" stating that when people upset him or disrespect him "it makes me want to kill them. I want to snap their fg necks." Patient stated "all their eyes burn through me" indicating possible thoughts/feelings of paranoia. Patient stated "when people disrespect me I want to rip their hearts out and eat them." But as soon as patient disclosed these feelings and thoughts, he immediately stated "but I would never hurt anyone, I would never really do it. I think about it all the time but I would never hurt anyone." Patient continued to repeat in cycles of "I want to kill them" and "I won't kill them" for a few more minutes. Patient also made comments such as "I don't trust anybody" and "I will never trust anybody ever again." SN listened to patient and responded using therapeutic communication. Patient does not appear to be a danger to self or to others. SN's overall impression is that patient struggles with anger and has manipulative tendencies. Notified charge nurse. Will continue to monitor.
[2017-06-13] VITALS: BP 138/76
--- NOTE | 2017-06-13 00:15 | NUR ---
PRN MOTRIN REASSESSMENT Patient reports improvement in pain and tenderness, now 4/10 on pain scale. Safety measures in place, call light within reach. Will continue to monitor.
[2017-06-13] MEDS ORDERED: ACET1TAB17 PO (03:05)
[2017-06-13] MEDS ORDERED: MELA3TAB PO (03:05)
[2017-06-13 04:00] VITALS: BP 105/61
[2017-06-13] MEDS: ONDANSETRON ODT 4 MG TAB.RAPDIS SL PRN ×2 (04:58→15:32)
--- NOTE | 2017-06-13 05:01 | NUR ---
PRN ZOFRAN AND IMODIUM Patient suddenly began to feel "very sick" and complained of nausea, x1 emesis, and x1 loose bowel movement. PRN Zofran given SL, PRN Imodium given PO. Patient observed sitting on toilet in bathroom. SN instructed patient to call using call light if he needed any assistance prior to SN reassessment in 15-20 minutes. Patient verbalized understanding. Will monitor for effectiveness.
--- NOTE | 2017-06-13 05:28 | NUR ---
PRN ZOFRAN REASSESSMENT Patient was given PRN Zofran SL at 0458 for nausea and one episode of emesis. Patient reports that nausea has improved and that emesis has ceased. PRN Zofran effective. Safety measures in place, call light within reach. Will continue to monitor.
--- NOTE | 2017-06-13 06:01 | NUR ---
PRN IMODIUM REASSESSMENT Patient reports that his stomach cramps have improved and diarrhea has stopped. PRN Imodium effective. Safety measures in place, call light within reach. Will continue to monitor.
--- NOTE | 2017-06-13 07:25 | NUR ---
END OF SHIFT Patient is a 22-year-old male admitted on 06/12/17 for heroin withdrawal, with concurrent meth use. Patient is scheduled to start a modified 4-day Subutex taper today. Patient received PRN Motrin last night for pain in his upper extremities, and PRN Zofran SL and PRN Imodium PO at 0500 for N/V/D. All PRNs were effective. Last COWS score was 8. Total intake was 650mL, void x1, stool x1, patient slept for about 1 hour. Safety measures in place, side rails up x2, bed locked in low position, call light within reach. Will endorse to day shift.
--- NOTE | 2017-06-13 07:30 | NUR ---
START OF SHIFT Pt 22 y/o male admitted for heroin withdrawal. Pt received in room on bed with eyes closed, but arousable to name. Pt appears disheveled and unkempt. Pt observed on bed with big jacket on. Pt uncooperative, did not want to be assessed this morning. Pt would open eyes for a moment and close right after. Pt labile. respirations even and unlabored. Pt is on a 5 day subutex taper and is on day 2. It was reported that pt slept for 1 hour last night. Bed on lowest position side rails x2 up for safety. Call light within reach.
[2017-06-13 08:00] VITALS: BP 109/61
[2017-06-13] MEDS: BUPRENORPHINE HCL 2 MG TAB.SUBL SL SCH ×4 (09:00→21:00)
[2017-06-13] MEDS: DOXYCYCLINE HYCLATE 100 MG TABLET PO SCH ×2 (09:00→21:00)
[2017-06-13] MEDS: LACTOBACILLUS RHAMNOSUS GG 1 EACH CAPSULE PO SCH ×2 (09:00→21:00)
[2017-06-13] MEDS ORDERED: TUBERCULIN,PURIF.PROT.DERIV. 5 TU/0.1 ML TEST ID ONE (09:00)
[2017-06-13] MEDS: NEOMY/BACITRAC/POLYMI OINT 28.35 GM TUBE TOP SCH ×2 (09:00→16:48)
[2017-06-13] MEDS: GABAPENTIN 300 MG CAPSULE PO SCH ×3 (09:00→21:00)
[2017-06-13] MEDS ORDERED: HYDROXYZINE PAMOATE 25 MG CAPSULE PO PRN (09:15)
--- NOTE | 2017-06-13 09:47 | NUR ---
NSG ENTRY pt in room on bed with eyes closed resting. Pt requires stimulus to awaken. VS wnl: CU=998/61 P=62 R=16 T=98.0 X4=993%@ra. Pt opens eyes and closes immediately. Will attempt to assess pt again in a few minutes.
--- NOTE | 2017-06-13 10:00 | NUR ---
MEDICATIONS HELD Pt in bed with eyes closed resting, arousable to stimulus, but responds with partially opens eyes and closes immediately and moves head around. Not able to assess pt at this time. Medications held this morning. cows deferred. aware.
[2017-06-13 11:21] LABS: ETHANOL < 3 MG/DL (0-0)
[2017-06-13 12:00] VITALS: BP 114/64
--- NOTE | 2017-06-13 12:00 | NUR ---
CIWA and COWS defferred. Pt with ciwa and cows deffered. Pt in room on bed with eyes closed. Pt refused to be assessed at this time.
--- NOTE | 2017-06-13 14:46 | NUR ---
PRN Pt agitated in room. Pt yelled while staring at the wall,"They should've woke me up first. I fucken hate that shit! I fucken hate that shit!", while pointing 2 fingers at the wall. Pt pacing in room. Pt also stated he vomited x3 in bathroom. When pt saw Zofran IM, and then pt refused stating, " I don't do needles! You get it!". Pt refused zofran IM. Pt also refused subutex with cows=14. Pt states"I'm not ready to take it! I'm waiting until I go into full blown withdrawals!". Even after stating to pt that it is okay to begin his subutex taper, pt still refused. Pt only accepted ativan po prn per MD order given and tolerated well. Addendum: 06/13/17 at 1505 by EMA BEST RN additional Pt was educated on the importance of having blood collected. Pt was also educated on importance of starting his subutex taper.
--- NOTE | 2017-06-13 15:34 | NUR ---
PRN After some prompting, pt took zofran ODT prn per MD order. Addendum: 06/13/17 at 1538 by EMA BEST RN additional Pt also took Subutex 4mg scheduled at 1500 after alot of prompting.
--- NOTE | 2017-06-13 15:46 | NUR ---
PRN EVAL pt observed in room on bed with eyes closed resting, but arousable.
[2017-06-13 16:00] VITALS: BP 117/60
--- NOTE | 2017-06-13 16:00 | NUR ---
COWS Cows deferred. Pt in room on bed with eyes closed resting, arousable, but just opens eyes and closes eyes immediately after.
--- NOTE | 2017-06-13 16:34 | NUR ---
PRN EVAL pt with no c/o nausea/ vomit.
--- NOTE | 2017-06-13 18:34 | NUR ---
END OF SHIFT Pt 22 y/o male admitted for heroin withdrawal. Pt alert and oriented to name, place, and time. Perrla. Skin warm and moist to touch. Respirations even and unlabored. Bilateral hand tremors noted. Pt labile with flat affect. Pt disheveled and unkempt. Pt easily irritable. Pt with episode of yelling this afternoon. Pt is on a 5 day Subutex taper and is on day 2. Pt isolative to room throughout the day. Pt did not attend group activity even with encouragement. Cows=deferred@0800, deferred@1200, 14@1500, and deferred @1600. Pt was seen by MD today. Pt selective with medications. Pt was given ativan po prn per MD order this afternoon for episode of agitation. Pt required a lot of prompting for medications. Bed on lowest position with side rails x2 up for safety. Call light within reach.
--- NOTE | 2017-06-13 19:15 | NUR ---
Start of shift note Received report from day shift nurse. Pt is a 22 yo male, A+Ox4, presenting to [facility] for Opiate/meth withdrawal. Pt noted with anxiety, agitation, chills, sweats, fatigue, and nausea. Pt has HX of PTSD which will be monitored during shift. Pt is on 4 day Subutex taper, tolerated well. Respirations even and unlabored. Will continue to monitor.
[2017-06-13 20:19] VITALS: BP 110/62
[2017-06-14 00:31] VITALS: BP 114/68
[2017-06-14 04:09] VITALS: BP 122/73
--- NOTE | 2017-06-14 06:58 | NUR ---
End of shift note Pt continuously noted with anxiety, agitation, chills, sweats, Nausea and fatigue. Pt noted with messy room during shift. Pt remained in room during entire shift. Pt did not attend group activities. Pt slept for a total of 11 HRS. Last COWS: 9 @0400. No PRNs given during shift. V/S WNL. Respirations even and unlabored. Will endorse to day shift nurse.
--- NOTE | 2017-06-14 07:23 | NUR ---
VS REFUSED ENGROSSER reported that pt is refusing to have VS taken and pt stated, " I don't care". Will attempt to take VS at 0800. Respirations even and unlabored.
--- NOTE | 2017-06-14 07:30 | NUR ---
START OF SHIFT Pt 22 y/o male admitted for heroin withdrawal. Pt received in room on bed with eyes closed, but arousable to name. Pt alert and oriented to name, place, and time. Perrla. Skin warm and moist to touch. Bilateral hand tremors noted. Pt appears disheveled and unkempt, with flat affect noted. Scattered clothes throughout the room noted. Encouraged pt to maintain hygiene. Pt uncooperative and did not want VS to be taken. Pt labile. respirations even and unlabored. Pt is on a 5 day subutex taper and is on day 3. It was reported that pt slept for 11 hours last night. Last reported cows=9@0400. Bed on lowest position side rails x2 up for safety. Call light within reach.
[2017-06-14 09:30] VITALS: BP 111/62
[2017-06-14] MEDS: LACTOBACILLUS RHAMNOSUS GG 1 EACH CAPSULE PO SCH ×2 (09:39→21:18)
[2017-06-14] MEDS: NEOMY/BACITRAC/POLYMI OINT 28.35 GM TUBE TOP SCH ×2 (09:39→17:32)
[2017-06-14] MEDS: DOXYCYCLINE HYCLATE 100 MG TABLET PO SCH ×2 (09:39→21:18)
[2017-06-14] MEDS: BUPRENORPHINE HCL 2 MG TAB.SUBL SL SCH ×3 (09:39→21:18)
[2017-06-14] MEDS: GABAPENTIN 300 MG CAPSULE PO SCH ×3 (09:39→21:18)
--- NOTE | 2017-06-14 09:43 | NUR ---
NSG ENTRY Pt took medications due 0900 after alot of prompting. Pt irritable and agitated. Flat affect, labile. Observed food scattered throughout the floor. Pt unkempt and malodorous. Encouraged pt to maintain hygiene, but pt did not want to respond.
[2017-06-14 12:00] VITALS: BP 108/64
--- NOTE | 2017-06-14 12:00 | NUR ---
COWS DEFERRED Pt in bed in room with eyes closed, but arousable to name. Pt did not want to be assessed at this time, appears irritable.
--- NOTE | 2017-06-14 12:08 | NUR ---
Client was prompted to attend group therapy by therapist. Client related that he would attend if he was feeling okay enough to.
--- NOTE | 2017-06-14 15:00 | NUR ---
NSG ENTRY Pt refusing to take medications at this time.
--- NOTE | 2017-06-14 15:32 | NUR ---
NSG ENTRY With some prompting, pt took medications.
[2017-06-14 16:02] LABS: BASOPHILS % (AUTO) 0.6 % (0.0-2.0); EOSINOPHILS % (AUTO) 0.6 % (0.0-7.0); HEMATOCRIT 45.5 % (36.7-47.1); HEMOGLOBIN 15.4 g/dL (12.5-16.3); LYMPHOCYTES # (AUTO) 1.6 K/uL (20.0-40.0); LYMPHOCYTES % (AUTO) 21.7 % (20.5-51.5); MEAN CORPUSCULAR HEMOGLOBIN 28.4 uug (23.8-33.4); MEAN CORPUSCULAR HGB CONC 34 g/dL (32.5-36.3); MEAN CORPUSCULAR VOLUME 83.6 fL (73.0-96.2); MONOCYTES # (AUTO) 0.4 K/uL (2.0-10.0); NEUTROPHILS # (AUTO) 5.1 K/uL (1.8-8.9); NEUTROPHILS % (AUTO) 71.1 % (38.5-71.5); PLATELET COUNT (AUTO) 364 K/uL (152-348); RED BLOOD CELL COUNT(AUTO) 5.44 MIL/uL (4.06-5.63); WHITE BLOOD COUNT (AUTO) 7.2 K/uL (3.6-10.2)
[2017-06-14 16:07] LABS: MAGNESIUM 1.8 mg/dL (1.8-2.4); POTASSIUM 4.4 mmol/L (3.5-5.1)
[2017-06-14 16:31] VITALS: BP 110/68
--- NOTE | 2017-06-14 17:47 | NUR ---
NSG ENTRY Pt observed walking around the unit with a jacket unzipped and with no shirt. Pt was asked to put on a shirt as too not expose self by TREATING PLANT OPERATOR. Pt had some yelling outburst. After prompting from multiple staff, pt complied by zipping up jacket. Pt is labile.
--- NOTE | 2017-06-14 18:49 | NUR ---
END OF SHIFT Pt 22 y/o male admitted for heroin withdrawal. Pt alert and oriented to name, place, and time. Perrla. Skin warm and moist to touch. Respirations even and unlabored. Bilateral hand tremors noted. Pt labile with flat affect. Pt disheveled, malodorous, and unkempt. Encouraged to maintain hygiene. Pt easily irritable and agitated. Pt also with yelling episodes this afternoon. Pt is on a 5 day Subutex taper and is on day 3. Pt isolative to room throughout the day. Pt did not attend group activity even with encouragement. Cows= 12@0800, derferred@1200, and 10@1600. Pt uncooperative and needed redirection today. Pt was seen by MD today. Bed on lowest position with side rails x2 up for safety. Call light within reach.
--- NOTE | 2017-06-14 19:30 | NUR ---
START OF SHIFT NOTE : Pt 22 y/o male admitted for for medically supervised Heroin/Meth withdrawals on 06/12/17. Pt. has history of Hep.C. He palced on 4 day Subutex taper. Pt alert and oriented to name, place, and time. Pt labile with flat affect, poor eye contact, anxious, pre-occupied , emotionally volatile, poor impulse control, denies SI/HI at this time. Pt disheveled, malodorous, and unkempt. He complains of muscle spasm, body ache, increased level of anxiety, difficulty falling and staying asleep, difficulty concentrating. Encouraged to maintain hygiene, encouraged to attend group and participate in activities. No PRNs given during day shift . Last COWS=10 at 16:00. All safety measures in place, side rails x2 in lower position. Will cont. to monitor patient closely.
[2017-06-14 20:00] VITALS: BP 138/79
--- NOTE | 2017-06-14 21:00 | NUR ---
PRN BENADRYL Pt. complains of insomnia. PRN BENADRYL given as ordered. Safety measures in place : bed on lowest position with side rails x2 up for safety, call light within reach. Will continue to monitor closely and offer help.
[2017-06-14] MEDS: diphenhydrAMINE 50 MG CAPSULE PO PRN (21:18)
--- NOTE | 2017-06-14 22:00 | NUR ---
RE-ASSESSMENT EJ Pt. is sleeping, RR=16, unlabored and even . Safety measures in place : bed on lowest position with side rails x2 up for safety, call light within reach. Will continue to monitor closely and offer help.
--- NOTE | 2017-06-15 06:50 | NUR ---
END OF SHIFT NOTE : Pt 22 y/o male admitted for for medically supervised Heroin/Meth withdrawals on 06/12/17. Pt. has history of Hep.C. He placed on 4 day Subutex taper. Pt. is compliant with a TX plan, PRN given during assistant casino shift manager : BENADRYL. COWS taken when pt. was awake, last COWS=8 at 04:00. Intake=1,396 , voided x2 , slept=3 1/2 hours. Pt. was anxious when awake in the night, but states he feels better . Safety measures in place : bed on lowest position with side rails x2 up for safety, all light within reach. Will continue to monitor closely and offer help.
--- NOTE | 2017-06-15 07:47 | NUR ---
Start of shift note; Received report from night nurse. Patient is a 22 year old male admitted on 06/12/17 for Opiate withdrawals. Patient was placed on 4 day Subutex taper. Patient appears anxious, complaining of muscle aches, stomach cramps, insomnia , avoidant to eye contact, agitation. Educated patient regarding the importance of compliance to treatment and medication regime. Encouraged patient to consume adequate fluid and nutritional intake. Encouraged patient to participate in group activities and therapies. All safety measures secured. Will continue to monitor patient.
[2017-06-15 08:00] VITALS: BP 113/65
[2017-06-15] MEDS: GABAPENTIN 300 MG CAPSULE PO SCH ×3 (09:50→21:37)
[2017-06-15] MEDS: LACTOBACILLUS RHAMNOSUS GG 1 EACH CAPSULE PO SCH ×2 (09:50→21:40)
[2017-06-15] MEDS: DOXYCYCLINE HYCLATE 100 MG TABLET PO SCH ×2 (09:50→21:40)
[2017-06-15] MEDS: BUPRENORPHINE HCL 2 MG TAB.SUBL SL SCH ×3 (09:51→21:40)
[2017-06-15] MEDS: NEOMY/BACITRAC/POLYMI OINT 28.35 GM TUBE TOP SCH ×2 (09:51→16:48)
[2017-06-15 12:00] VITALS: BP 122/80
[2017-06-15 16:00] VITALS: BP 126/82
--- NOTE | 2017-06-15 16:00 | NUR ---
Behavioral note; Patient appears very anxious pacing back and forth in the room. Patient stated " I want to go home and leave now". Patient is high risk for AMA. Educated patient regarding the importance of compliance to treatment, patient verbalized understanding. biodiesel operations manager spoke to patient and was able to convince patient to stay. Redirected patient as needed, relaxation techniques observed.
--- NOTE | 2017-06-15 18:35 | NUR ---
End of shift note; Patient is AOX4. Patient remained compliant with treatment plan and medication regime. Medications were effective in reducing withdrawal symptoms. Patient participated in group therapies and activities. Patient's last COWS score is 5 and CIWA is 4 at 1600. All safety measures secured. Met all needs.
[2017-06-15 20:08] VITALS: BP 124/72
--- NOTE | 2017-06-15 20:15 | NUR ---
START OF Shift: A/O x4 c/o feeling overwhelm restlessness, anxiety and slight tremors.COW 4 On subutex taper. Given prn Catapres and Benadryl.Encourage to verbalize feelings and prayer. Continue to observe for safety and falls. Denies of any other distress. Siderails up Call Light within reach.
[2017-06-15] MEDS: diphenhydrAMINE 50 MG CAPSULE PO PRN (21:40)
--- NOTE | 2017-06-16 | NUR ---
Deferred V/S ,COW & CIWA per protocol if sleeping
--- NOTE | 2017-06-16 04:00 | NUR ---
Deferred V/S ,COW & CIWA per protocol if sleeping
[2017-06-16 04:56] VITALS: BP 124/72
--- NOTE | 2017-06-16 05:15 | NUR ---
PRN's Benadryl for s/s w/d effective after 45mins
--- NOTE | 2017-06-16 06:19 | NUR ---
END of Shift: Lying in bed eyes closed resp even and unlab appears resting comfortably Slept 7 hours. Siderails up call light within reach. Denies of any distress.
--- NOTE | 2017-06-16 07:22 | NUR ---
Start of shift note; Received report from night nurse. Patient is a 22 year old male admitted on 06/12/17 for Opiate withdrawals. Patient was placed on 4 day Subutex taper. Patient appears anxious, complaining of muscle aches, stomach cramps, insomnia , avoidant to eye contact, agitation. Patient received PRN Benadryl last night for sleep, noted to be effective. Educated patient regarding the importance of compliance to treatment and medication regime. Encouraged patient to consume adequate fluid and nutritional intake. Encouraged patient to participate in group activities and therapies. All safety measures secured. Will continue to monitor patient.
[2017-06-16 08:00] VITALS: BP 110/67
[2017-06-16] MEDS ORDERED: BUPRENORPHINE HCL 2 MG TAB.SUBL SL SCH (09:00)
[2017-06-16] MEDS: DOXYCYCLINE HYCLATE 100 MG TABLET PO SCH ×2 (09:53→21:00)
[2017-06-16] MEDS: GABAPENTIN 300 MG CAPSULE PO SCH ×3 (09:53→21:00)
[2017-06-16] MEDS: LACTOBACILLUS RHAMNOSUS GG 1 EACH CAPSULE PO SCH ×2 (09:54→21:00)
[2017-06-16] MEDS: NEOMY/BACITRAC/POLYMI OINT 28.35 GM TUBE TOP SCH ×2 (09:54→16:29)
--- NOTE | 2017-06-16 11:24 | NUR ---
CLient prompted client to attend groups
[2017-06-16 12:00] VITALS: BP 107/60
[2017-06-16] MEDS ORDERED: ONDA4TAB11 SL (14:25)
[2017-06-16] MEDS ORDERED: GABA-534 PO (14:25)
[2017-06-16] MEDS ORDERED: IBUP-1955 PO (14:25)
[2017-06-16] MEDS ORDERED: NEOM28.3 TOP (14:25)
[2017-06-16] MEDS ORDERED: DOXY100T2 PO (14:25)
[2017-06-16] MEDS ORDERED: HYDR-3895 PO (14:25)
[2017-06-16] MEDS ORDERED: LACT1CAP57 PO (14:25)
[2017-06-16] MEDS ORDERED: FAMO20TA8 PO (14:27)
[2017-06-16] MEDS: ONDANSETRON ODT 4 MG TAB.RAPDIS SL PRN (14:31)
--- NOTE | 2017-06-16 14:31 | NUR ---
PRN medication; Patient reported nausea and diarrhea. PRN Imodium 2mg PO for diarrhea and Zofran 4mg ODT for nausea. Will monitor patient for effectiveness of medication.
--- NOTE | 2017-06-16 15:31 | NUR ---
Re-assessment; Patient is AOx4. Patient denies nausea, and further diarrhea episodes. PRN medications were effective.
[2017-06-16 16:00] VITALS: BP 112/68
--- NOTE | 2017-06-16 18:04 | NUR ---
End of shift note; Patient is AOX4, appears anxious and agitated. Patient remained compliant with treatment plan and medication regime. Patient's last COWS score is 6. Medications noted to be effective in reducing withdrawal symptoms. Patient is medically cleared for discharge tomorrow. All safety measures secured. Met all needs.
--- NOTE | 2017-06-16 19:30 | NUR ---
Start of Shift Notes: Upon start of shift, pt was in bed with eyes closed. Respirations even and unlabored. Pt refused to be assessed and noted to be agitated due to being woken up. Per day shift nurse, COWS was 6 at 1600. Pt refused education about current plan of care. Bed in lowest position. Side rails up x2. Call light functioning and within reach. All needs attended and met. Will continue to monitor.
--- NOTE | 2017-06-16 20:00 | NUR ---
Behavioral Note: Unable to assess vital signs. Pt was agitated about being woken up and stated "get the fuck out". Respirations even and unlabored. Pt shortly went back to sleep after. Will continue to monitor.
[2017-06-17 04:00] VITALS: BP 100/58
--- NOTE | 2017-06-17 07:04 | NUR ---
End of Shift Notes: Pt currently in bed with eyes closed. Pt was asleep for most of shift. Pt slept for 10 hours. Last COWS was 2 at 0400. Pt scheduled to be discharged today. No PRNs given. Bed in lowest position. Side rails up x2. All needs attended and met. Call light functioning and within reach. Will endorse to day shift nurse.
--- NOTE | 2017-06-17 07:05 | NUR ---
Start of Shift [facility] receives report on 22 year old male admitted on 06/12/17 fpr Heroin detoxification. Pt endorses NKA, full code and regular diet. PMH of Hepatitis C and PTSD. Pt has completed Subutex taper and is scheduled to discharge this morning. Last COWS 2 per NOC. No PRN administered on NOC. [facility] encounters pt in bed resting with eyes closed. Rise and fall of chest noted with even rise and fall of chest noted. Bed in low position with wheels locked and side rails up x2. Will continue to monitor, support and encourage according to plan of care.
[2017-06-17] MEDS: GABAPENTIN 300 MG CAPSULE PO SCH (08:19)
[2017-06-17] MEDS: LACTOBACILLUS RHAMNOSUS GG 1 EACH CAPSULE PO SCH (08:19)
[2017-06-17] MEDS: DOXYCYCLINE HYCLATE 100 MG TABLET PO SCH (08:19)
[2017-06-17] MEDS: NEOMY/BACITRAC/POLYMI OINT 28.35 GM TUBE TOP SCH (08:19)
[2017-06-17 08:53] VITALS: BP 113/65
--- NOTE | 2017-06-17 10:05 | NUR ---
Discharge Pt refuses all discharge education. Pt irritable, angry and rude to staff. Pt ride here at 0900, pt refusing to sign paperwork or to leave the premises. Pt spending in inordinate amount of time in bathroom and yells at staff for questioning what he is doing. Pt is A/O x4 and makes his needs known. Pt refuses to answer any questions related to psychiatric symptoms. Pt eventually signs for medication and personal effects. Pt discharges per ambulation to private car for transportation to [facility]. Pt sarcastic and angry as he exits the unit. Staff found Subutex hidden pt's cigarette box. Pt driven off property
== END 2017-06-17 10:05 | disposition other institution (70) | DRG 895 ==
LOC: SRC 20:51
PROVIDERS: ADMIT Internal Medicine; ATTEND Internal Medicine
PROC: HZ2ZZZZ Detoxification Services for Substance Abuse Treatment (ICD-10-PCS; principal; 2017-06-12)
PROC: HZ31ZZZ Individual Counseling for Substance Abuse Treatment, Behavioral (ICD-10-PCS; 2017-06-14)
DX: F11.23 Opioid dependence with withdrawal (principal); E87.3 Alkalosis; Z86.74 Personal history of sudden cardiac arrest; F15.221 Other stimulant dependence with intoxication delirium; L03.114 Cellulitis of left upper limb; E86.0 Dehydration; Z91.89 Other specified personal risk factors, not elsewhere classified; X78.8XXS Intentional self-harm by other sharp object, sequela; S51.832S Puncture wound without foreign body of left forearm, sequela; F17.210 Nicotine dependence, cigarettes, uncomplicated; Z59.0 Homelessness; F43.10 Post-traumatic stress disorder, unspecified; Z59.1 Inadequate housing; Z79.899 Other long term (current) drug therapy; R73.9 Hyperglycemia, unspecified
CPT/HCPCS: 36415; 80307; 80324; 80361; 83735; 85025; 87806; A4663; G0480; J2405; Q0162; Q0163